=== PATIENT | male | born 1945 | race Caucasian/White ===

== ENCOUNTER 2023-12-04 12:47 | Outpatient (CLI) | payer MEDICARE, SELFPAY ==
--- NOTE | 2023-12-04 12:57 | USCV_ITS ---
Ratna Fernandez Age: 78 Gender: M : 1945 Exam Date: 12/04/2023 14:09 Ordering Phys: Konrad Barr MD Technologist: TOPHER [place] [facility] [place]: SIMON BP: / HR: 85 Rhythm: Atrial fibrillation Technical Quality: Adequate MEASUREMENTS (Male / Female) Normal Values 2D ECHO LV Diastolic Diameter PLAX 4.3 cm 4.2 - 5.9 / 3.9 - 5.3 cm IVS Diastolic Thickness 1.1 cm 0.6 - 1.0 / 0.6 - 0.9 cm IVS Systolic Thickness 1.4 cm LVPW Diastolic Thickness 1.4 cm 0.6 - 1.0 / 0.6 - 0.9 cm LVPW Systolic Thickness 1.7 cm LVOT Diameter 2.1 cm LV Ejection Fraction 2D Teich 32.1 % LV Ejection Fraction MOD 4C 48.4 % LV Ejection Fraction MOD 2C 40.3 % LV Ejection Fraction 2C AL 43.5 % LA Diameter 4.3 cm RA Systolic Volume 4C AL 39.7 ml RA Systolic Volume 4C MOD 37.0 ml LA Sys Volume AL 60.0 cm cubed LA Sys Volume Index AL 25.1 cm cubed/m squared Aorta at Sinotubular Diameter 2.8 cm IVC Diameter 1.8 cm M-MODE LA Ao Ratio MM 1.1 MV E Point Septal Separation 1.2 cm AV Cusp Separation MM 2.0 cm DOPPLER AV Peak Velocity 121.0 cm/s LVOT Peak Velocity 79.0 cm/s AV Area Cont Eq vti 4.0 cm squared AV Area Cont Eq pk 2.2 cm squared MV Area PHT 3.5 cm squared Mitral E to A Ratio 36.8 TV Peak Velocity 99.7 cm/s TR Peak Velocity 105.0 cm/s TR Peak Gradient 4.4 mmHg TR Mean Velocity 78.0 cm/s TR Mean Gradient 2.6 mmHg TR Velocity Time Integral 28.2 cm TV Peak E Velocity 23.0 cm/s PV Peak Velocity 97.0 cm/s FINDINGS Left Ventricle Normal left ventricular size and systolic function, EF 55%, visual. Because atrial fibrillation, segmental wall motion analysis is somewhat difficult. No gross abnormalities noted Right Ventricle The right ventricle is normal in size and function. Right Atrium The right atrium is normal in size. Left Atrium Mildly increased left atrial size. Mitral Valve Trace mitral valve regurgitation. Aortic Valve No gross abnormalities noted Tricuspid Valve Trace tricuspid valve regurgitation. Pulmonic Valve No gross abnormalities noted Pericardium Normal pericardium without effusion. Aorta Normal ascending aorta dimension. IVC Inferior vena cava not visualized. CONCLUSIONS Normal left ventricular size and systolic function, EF 55%, visual. Because atrial fibrillation, segmental wall motion analysis is somewhat difficult. No gross abnormalities noted. Mildly increased left atrial size. Trace mitral valve regurgitation. Trace tricuspid valve regurgitation. Estimated pulmonary artery peak systolic pressure , possibly within normal limits. There is no pericardial effusion. There are no intracardiac masses. No similar previous studies are available for comparison Dr Dani Wylie MD [facility] WITH [facility] (Electronically Signed) Final Date: 06 December 2023 15:27 S
== END 2023-12-04 12:48 | disposition home or self-care (01) ==
PROVIDERS: PCP Family Medicine; Visit Provider Family Medicine
DX: R06.09 Other forms of dyspnea (principal)
CPT/HCPCS: 93306

== ENCOUNTER → 2023-12-22 16:05 | Outpatient (BNVA) | payer MEDICARE, SELFPAY | PROVIDERS: Family Provider Family Medicine; PCP Family Medicine; Referring Provider Family Medicine; Visit Provider Internal Medicine Cardiovascular Disease | DX: N18.9 Chronic kidney disease, unspecified (principal); I48.91 Unspecified atrial fibrillation; R07.9 Chest pain, unspecified; R06.02 Shortness of breath; R94.31 Abnormal electrocardiogram [ECG] [EKG] | CPT/HCPCS: 36415; 80048; 83880; 84443; 93005; 99204 ==

== ENCOUNTER 2024-01-13 07:10 | Outpatient (CLI) | payer MEDICARE, SELFPAY ==
--- NOTE | 2024-01-13 07:18 | NMCV_ITS ---
NM shun perf SPECT r/s* [id number] Ratna Fernandez Age: 78 Gender: M : 1945 Exam Date: 01/13/2024 07:18 Ordering Phys: Dani Wylie MD ([email or web address]) Technologist: CAMDEN John Exam Location: [facility] Indications: cp STRESS TEST Please see separate stress test report in [facility] for full findings IMAGE PROTOCOL Rest/Stress 1 Lexiscan Day Radiopharmaceutical Dose (mCi) Administration Site Administered by Rest: Tc-99m 10.3 IV CAMDEN John Sestamibi Stress:Tc-99m 32.9 IV CAMDEN Horton Sestamibi Rest: 13-Jan-2024 60 Discovery 630 Stress: 13-Jan-2024 30 Discovery 630 0.4mg Lexiscan. Images obtained in supine and prone position. SPECT RESULTS Technical Quality: Good Raw Data Analysis: Normal Image Corrections: No attenuation or motion correction applied Summed Stress Score: 1 Summed Rest Score: 1 Summed Difference Score: 0 PERFUSION FINDINGS Fairly uniform myocardial tracer uptake with no significant perfusion abnormalities FUNCTIONAL RESULTS (calculated via Gated SPECT) Stress Image LV EF (%): 73 Stress EDV (mL):70 TID: 0.83 Stress ESV (mL):19 FUNCTIONAL FINDINGS: Segmental wall motion analysis revealing no gross wall motion abnormalities IMPRESSIONS 1. Myocardial perfusion imaging revealing uniform myocardial tracer uptake with no significant Perfusion abnormalities 2. Normal LV ejection fraction of 73%. 3. LV wall motion analysis revealing no gross wall motion abnormalities. 4. Normal LV volume Low probability for coronary ischemia, based on the above findings Dr Dani Wylie MD FACC (Electronically Signed) Final Date: 13 January 2024 10:27 S
--- NOTE | 2024-01-13 07:18 | ECG_ITS ---
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 Interpretive Statements Lung unchanged pre/post procedure; Intraprocedure shortess of breath; Symptoms resoled by discharge PROCEDURE: At the baseline, the EKG revealed atrial fibrillation with a controlled ventricular response rate. Poor R wave progression. Some nonspecific T wave changes. The baseline heart was 73 bpm with a blood pressue of 161/99 mm of Hg Lexiscan was infused over a period of 20 seconds. A total of 0.4 milligrams of Lexiscan was infused. The stress phase was continued for a total of 5 minutes. Heart rate at the end of the stress phase was 94 bpm with a blood pressure 141/85 mm of Hg. The EKG at the peak infusion revealed no significant changes. Sestamibi was injected 20 seconds after the Lexiscan infusion. Heart rate at the end of the recovery phase was 87 bpm with a blood pressure of 144/86 mm of Hg. CONCLUSION: 1. No significant EKG changes with the LexiScan infusion 2. No LexiScan induced chest pain or cardiac arrhythmia 3. Normal blood pressure and heart rate response 4. Sestamibi/sestamibi perfusion scan pending; see separate report. Electronically Signed On 01-14-2024 19:53:37 FINANCIAL SERVICES DIRECTOR by Dani Wylie M.D. [id number]
[2024-01-13 07:30] VITALS: BMI 36.1
[2024-01-13] MEDS: regadenoson 0.4 Mg/5 ml Syringe IVP (08:43)
[2024-01-13 08:56] VITALS: BP 144/86; PULSE 87
== END 2024-01-13 07:11 | disposition home or self-care (01) ==
LOC: CDL 07:14
PROVIDERS: Family Provider Family Medicine; PCP Family Medicine; Visit Provider Internal Medicine Cardiovascular Disease
DX: Z98.61 Coronary angioplasty status (principal); R06.02 Shortness of breath
CPT/HCPCS: 36415; 78452; 93017; 96374; A9500; J2785

== ENCOUNTER 2024-03-20 05:11 | Emergency (ER) | payer MEDICARE, SELFPAY ==
[2024-03-20 05:17] VITALS: BP 153/102; PULSE 105; RESP 21; TEMP 36.7; O2SAT 93; BMI 36.1
--- NOTE | 2024-03-20 05:23 | XRR_ITS ---
PROCEDURE INFORMATION: Exam: XR Chest Exam date and time: 03/20/2024 6:00 AM Age: 78 years old Clinical indication: Cough and dyspnea; Cough with dyspnea TECHNIQUE: Imaging protocol: Radiologic exam of the chest. Views: 1 view. COMPARISON: No relevant prior studies available. FINDINGS: Lungs: Unremarkable. No consolidation. Pleural spaces: Unremarkable. No pleural effusion. No pneumothorax. Heart/Mediastinum: Unremarkable. No cardiomegaly. Bones/joints: Unremarkable. XR/XR chest 1V portable [id number] IMPRESSION: No acute findings.
--- NOTE | 2024-03-20 05:23 | ECG_ITS ---
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
--- NOTE | 2024-03-20 05:23 | W.ED.SOB ---
Documented by User: J Luis Robledo DO 03/20/24 05:27 HPI - SOB/Dyspnea General: Chief Complaint: Shortness of Breath/Dyspnea Stated Complaint: Trouble breathing Time Seen by Provider: 03/20/24 05:22 History of Present Illness: HPI Narrative: Patient presents to the ER with complaints of shortness of breath off and on for the last several days. He says he got short of breath last night and it has not gone away. Patient denies any coughs colds fevers chills chest pain diaphoresis, he does say his legs swell up on him occasionally and he is on chlorthalidone and spironolactone. Patient does have A-fib and he takes Eliquis for this. Patient had a nuc med perfusion scan on 01/13/2024 showed ejection fraction of 70+ percent also a Lexiscan stress test which was negative performed the same day. Patient had an echo done on 12/04/2023 that showed A-fib and ejection fraction approximately 55% Related Data Home Medications ?Medication ?Instructions ?Recorded ?Confirmed amlodipine 10 mg tablet 10 mg PO DAILY 12/22/23 03/20/24 apixaban 5 mg tablet 5 mg PO BID 12/22/23 03/20/24 atorvastatin 20 mg tablet 20 mg PO DAILY 12/22/23 03/20/24 metoprolol tartrate 100 mg tablet 100 mg PO DAILY 12/22/23 03/20/24 naproxen 500 mg tablet (Naprosyn) 500 mg PO BID 12/22/23 03/20/24 spironolactone 25 mg tablet 25 mg PO DAILY 12/22/23 03/20/24 valsartan 320 mg tablet 320 mg PO DAILY 12/22/23 03/20/24 benzonatate 200 mg capsule 200 mg PO TID 03/20/24 03/20/24 fluticasone propionate 50 2 spray intranasal DAILY 03/20/24 03/20/24 mcg/actuation nasal spray,suspension Previous Rx's ?Medication ?Instructions ?Recorded chlorthalidone 25 mg tablet 25 mg PO DAILY 30 days #30 tabs 12/22/23 Allergies Allergy/AdvReac Type Severity Reaction Status Date / Time No Known Allergies Allergy Unverified 12/22/23 14:58 Review of Systems General: Reports: 10 or more systems reviewed and unremarkable except in HPI and below PFSH ED PFSH: Social History Smoking and tobacco/nicotine status: former use of tobacco/nicotine Physical Exam Const: COMMON NORMALS: no acute distress, average body habitus, patient oriented x3, no limitations, healthy appearing, alert and well nourished HENMT: COMMON NORMALS: normocephalic, atraumatic, hearing grossly normal bilaterally, external ears normal and Normal external nose present HEAD & SCALP: normocephalic and atraumatic NOSE: Normal external nose present EXTERNAL EAR: Yes external ears normal Neck/C-Spine: COMMON NORMALS: full ROM, no lymphadenopathy, supple, no meningeal signs, no JVD and Thyroid normal THYROID: Thyroid normal Chest: COMMONS NORMALS: normal inspection of the chest and normal palpation of entire chest wall Resp: COMMON NORMALS: normal respiratory effort, No retractions, No use of accessory muscles and clear to auscultation bilaterally AUSCULTATION: clear to auscultation bilaterally Cardio: COMMON NORMALS: no JVD, S1 normal heart sound present, S2 normal heart sound present, No gallops present (Cardio), No clicks present (Cardio) and No murmurs present (Cardio); negative for regular rate (Irregularly irregular rhythm) and negative for regular rhythm RATE: abnormal rate (Irregularly irregular rhythm) RHYTHM: abnormal rhythm HEART SOUNDS: S1 normal heart sound present and S2 normal heart sound present GI: COMMON NORMALS: Normal to inspection, nondistended, normoactive bowel sounds present, Soft to palpation, non-tender, No hepatosplenomegaly present and no masses PALPATION: Yes Soft to palpation and Yes No hepatosplenomegaly present Extremity: NARRATIVE EXTREMITY EXAM: 1+ pitting edema bilateral lower extremities Neuro: COMMON NORMALS: patient oriented x3 SENSORIUM/ORIENTATION: Yes alert MENINGEAL SIGNS: Yes no meningeal signs Course Vital Signs: Vital signs: Vital Signs Temperature 98.1 F 03/20/24 05:17 Pulse Rate 107 H 03/20/24 09:30 Respiratory Rate 20 H 03/20/24 08:00 Blood Pressure 152/87 03/20/24 09:30 Pulse Oximetry 94 03/20/24 09:30 Oxygen Delivery Me thod Room Air 03/20/24 05:17 MDM - SOB/Dyspnea Medical Records I reviewed the patient's medical records. Lab Data I reviewed the patient's lab results. 03/20/24 05:06 03/20/24 05:06 Labs/Radiology: Radiology Impressions Chest X-Ray 03/20/24 05:23 IMPRESSION: No acute findings. Laboratory Results WBC 16.14 10^3/uL (3.29-11.43) H 03/20/24 05:06 RBC 4.82 10^6/uL (3.85-5.65) 03/20/24 05:06 Hgb 14.60 g/dL (11.27-16.99) 03/20/24 05:06 Hct 43.3 % (37-53) 03/20/24 05:06 MCV 89.8 fl (82-101) 03/20/24 05:06 MCH 30.3 pg (27-33) 03/20/24 05:06 MCHC 33.7 g/dL (30-55) 03/20/24 05:06 RDW 13.7 % (12.1-15.1) 03/20/24 05:06 Plt Count 241 10^3/cmm (157-399) 03/20/24 05:06 MPV 10.1 fL (7.4-10.4) 03/20/24 05:06 Neut % (Auto) 79.3 % 03/20/24 05:06 Lymph % (Auto) 3.9 % 03/20/24 05:06 [place] % (Auto) 10.0 % 03/20/24 05:06 Eos % (Auto) 5.7 % 03/20/24 05:06 Baso % (Auto) 0.6 % 03/20/24 05:06 Neut # (Auto) 12.79 10^3/uL (1.8-7.7) H 03/20/24 05:06 Lymph # (Auto) 0.6 10^3/uL (0.8-4.8) L 03/20/24 05:06 [place] # (Auto) 1.6 10^3/uL (0.2-0.9) H 03/20/24 05:06 Eos # (Auto) 0.9 10^3/uL (0.0-0.8) H 03/20/24 05:06 Baso # (Auto) 0.1 10^3/uL (0.0-0.1) 03/20/24 05:06 Nucleated RBC % (auto) 0 % 03/20/24 05:06 Nucleated RBCs # 0.0 /100WBC 03/20/24 05:06 Sodium 130 mmol/L (136-145) L 03/20/24 05:06 Potassium 4.3 mmol/L (3.5-5.1) 03/20/24 05:06 Chloride 93 mmol/L (98-107) L 03/20/24 05:06 Carbon Dioxide 22 mmol/L (22-29) 03/20/24 05:06 Anion Gap 19.3 (5-19) H 03/20/24 05:06 BUN 14 mg/dL (8-23) 03/20/24 05:06 Creatinine 1.4 mg/dL (0.7-1.2) H 03/20/24 05:06 GFR Calculation Not Reportable 03/20/24 05:06 Glucose 128 mg/dL (65-115) H 03/20/24 05:06 Calculated Osmolality 272 mOsm/kg (285-295) L 03/20/24 05:06 Calcium 9.3 mg/dL (8.5-10.5) 03/20/24 05:06 Magnesium 1.7 mg/dL (1.7-2.3) 03/20/24 05:06 Total Bilirubin 0.8 mg/dL (0.15-1.2) 03/20/24 05:06 AST 18 U/L (0-40) 03/20/24 05:06 ALT 10 U/L (0-41) 03/20/24 05:06 Alkaline Phosphatase 112 U/L (40-130) 03/20/24 05:06 Troponin T Baseline 20 ng/L (0-15) H 03/20/24 05:06 Troponin T 120 Minute 19.93 ng/L (0-15) H 03/20/24 07:05 Delta Troponin T -0.07 ABS# (0-10) L 03/20/24 07:05 NT-Pro-B Natriuret Pep 1675 pg/mL (0-450) H 03/20/24 05:06 Total Protein 7.3 g/dL (6.6-8.7) 03/20/24 05:06 Albumin 4.0 g/dL (3.5-5.2) 03/20/24 05:06 Globulin 3.3 g/dL (1.3-4.6) 03/20/24 05:06 Coronavirus (PCR) Negative (Negative) 03/20/24 06:21 Influenza A (PCR) Positive (Negative) 03/20/24 06:21 Influenza Type B (PCR) Negative (Negative) 03/20/24 06:21 RSV (PCR) Negative (Negative) 03/20/24 06:21 All radiology interpretation(s) finalized by discharge Discharge Plan Discharge Patient Disposition: Home Clinical Impression: Influenza A Condition: Stable Prescriptions: No Action atorvastatin 20 mg tablet 20 mg PO DAILY metoprolol tartrate 100 mg tablet 100 mg PO DAILY naproxen [Naprosyn] 500 mg tablet 500 mg PO BID valsartan 320 mg tablet 320 mg PO DAILY amlodipine 10 mg tablet 10 mg PO DAILY apixaban 5 mg tablet 5 mg PO BID spironolactone 25 mg tablet 25 mg PO DAILY chlorthalidone 25 mg tablet 25 mg PO DAILY 30 Days Qty: 30 5RF benzonatate 200 mg capsule 200 mg PO TID fluticasone propionate 50 mcg/actuation spray,suspension 2 spray INTRANASAL DAILY Discharge Orders: Discharge ED (Routine); Ordered 03/20/24 Ordered By: Wil Vasquez Referrals: Konrad Barr MD [Primary Care Provider] - Patient Instructions: Influenza (ED), Opioid Safety, Pain Management Activity Restrictions/Additional Instructions: Thank you for choosing [facility] for your healthcare needs today. It is very important that you follow up as instructed or that you return to the Emergency Department should you have concerns or if your condition changes or worsens in any way. Print Language: Bulgarian Sign Out Sign Out Data: Patient Sign Out occurred on 03/20/24 at 06:20. Patient's care was discussed, and care was transferred from J Luis Robledo DO to Wil Vasquez DO. Coding Level of Care Code ED Sergeant Missile Crewman for Chg Fwd Documented by User: Wil Vasquez DO 03/20/24 14:11 HPI - SOB/Dyspnea General: Chief Complaint: Shortness of Breath/Dyspnea Stated Complaint: Trouble breathing Time Seen by Provider: 03/20/24 05:22 Related Data Home Medications ?Medication ?Instructions ?Recorded ?Confirmed amlodipine 10 mg tablet 10 mg PO DAILY 12/22/23 03/20/24 apixaban 5 mg tablet 5 mg PO BID 12/22/23 03/20/24 atorvastatin 20 mg tablet 20 mg PO DAILY 12/22/23 03/20/24 metoprolol tartrate 100 mg tablet 100 mg PO DAILY 12/22/23 03/20/24 naproxen 500 mg tablet (Naprosyn) 500 mg PO BID 12/22/23 03/20/24 spironolactone 25 mg tablet 25 mg PO DAILY 12/22/23 03/20/24 valsartan 320 mg tablet 320 mg PO DAILY 12/22/23 03/20/24 benzonatate 200 mg capsule 200 mg PO TID 03/20/24 03/20/24 fluticasone propionate 50 2 spray intranasal DAILY 03/20/24 03/20/24 mcg/actuation nasal spray,suspension Previous Rx's ?Medication ?Instructions ?Recorded chlorthalidone 25 mg tablet 25 mg PO DAILY 30 days #30 tabs 12/22/23 Allergies Allergy/AdvReac Type Severity Reaction Status Date / Time No Known Allergies Allergy Unverified 12/22/23 14:58 PFS ED PFSH: Social History Smoking and tobacco/nicotine status: former use of tobacco/nicotine Course Vital Signs: Vital signs: Vital Signs Temperature 98.1 F 03/20/24 05:17 Pulse Rate 107 H 03/20/24 09:30 Respiratory Rate 20 H 03/20/24 08:00 Blood Pressure 152/87 03/20/24 09:30 Pulse Oximetry 94 03/20/24 09:30 Oxygen Delivery Me thod Room Air 03/20/24 05:17 MDM - SOB/Dyspnea Medical Decision Making Care assumed at change of shift. Patient awake and alert he feels well he has no specific complaints at this point he had significant cough earlier. Denies any hemoptysis no chest pain at this time. Labs and imaging reviewed. Mild hyponatremia. Troponins trending normal. Patient states he is feeling little bit better will go ahead and discharge home. Have follow-up with primary next week. Return if has further problems. Lab Data 03/20/24 05:06 03/20/24 05:06 Labs/Radiology: Radiology Impressions Chest X-Ray 03/20/24 05:23 IMPRESSION: No acute findings. Laboratory Results WBC 16.14 10^3/uL (3.29-11.43) H 03/20/24 05:06 RBC 4.82 10^6/uL (3.85-5.65) 03/20/24 05:06 Hgb 14.60 g/dL (11.27-16.99) 03/20/24 05:06 Hct 43.3 % (37-53) 03/20/24 05:06 MCV 89.8 fl (82-101) 03/20/24 05:06 MCH 30.3 pg (27-33) 03/20/24 05:06 MCHC 33.7 g/dL (30-55) 03/20/24 05:06 RDW 13.7 % (12.1-15.1) 03/20/24 05:06 Plt Count 241 10^3/cmm (157-399) 03/20/24 05:06 MPV 10.1 fL (7.4-10.4) 03/20/24 05:06 Neut % (Auto) 79.3 % 03/20/24 05:06 Lymph % (Auto) 3.9 % 03/20/24 05:06 [place] % (Auto) 10.0 % 03/20/24 05:06 Eos % (Auto) 5.7 % 03/20/24 05:06 Baso % (Auto) 0.6 % 03/20/24 05:06 Neut # (Auto) 12.79 10^3/uL (1.8-7.7) H 03/20/24 05:06 Lymph # (Auto) 0.6 10^3/uL (0.8-4.8) L 03/20/24 05:06 [place] # (Auto) 1.6 10^3/uL (0.2-0.9) H 03/20/24 05:06 Eos # (Auto) 0.9 10^3/uL (0.0-0.8) H 03/20/24 05:06 Baso # (Auto) 0.1 10^3/uL (0.0-0.1) 03/20/24 05:06 Nucleated RBC % (auto) 0 % 03/20/24 05:06 Nucleated RBCs # 0.0 /100WBC 03/20/24 05:06 Sodium 130 mmol/L (136-145) L 03/20/24 05:06 Potassium 4.3 mmol/L (3.5-5.1) 03/20/24 05:06 Chloride 93 mmol/L (98-107) L 03/20/24 05:06 Carbon Dioxide 22 mmol/L (22-29) 03/20/24 05:06 Anion Gap 19.3 (5-19) H 03/20/24 05:06 BUN 14 mg/dL (8-23) 03/20/24 05:06 Creatinine 1.4 mg/dL (0.7-1.2) H 03/20/24 05:06 GFR Calculation Not Reportable 03/20/24 05:06 Glucose 128 mg/dL (65-115) H 03/20/24 05:06 Calculated Osmolality 272 mOsm/kg (285-295) L 03/20/24 05:06 Calcium 9.3 mg/dL (8.5-10.5) 03/20/24 05:06 Magnesium 1.7 mg/dL (1.7-2.3) 03/20/24 05:06 Total Bilirubin 0.8 mg/dL (0.15-1.2) 03/20/24 05:06 AST 18 U/L (0-40) 03/20/24 05:06 ALT 10 U/L (0-41) 03/20/24 05:06 Alkaline Phosphatase 112 U/L (40-130) 03/20/24 05:06 Troponin T Baseline 20 ng/L (0-15) H 03/20/24 05:06 Troponin T 120 Minute 19.93 ng/L (0-15) H 03/20/24 07:05 Delta Troponin T -0.07 ABS# (0-10) L 03/20/24 07:05 NT-Pro-B Natriuret Pep 1675 pg/mL (0-450) H 03/20/24 05:06 Total Protein 7.3 g/dL (6.6-8.7) 03/20/24 05:06 Albumin 4.0 g/dL (3.5-5.2) 03/20/24 05:06 Globulin 3.3 g/dL (1.3-4.6) 03/20/24 05:06 Coronavirus (PCR) Negative (Negative) 03/20/24 06:21 Influenza A (PCR) Positive (Negative) 03/20/24 06:21 Influenza Type B (PCR) Negative (Negative) 03/20/24 06:21 RSV (PCR) Negative (Negative) 03/20/24 06:21 Discharge Plan Discharge Patient Disposition: Home Clinical Impression: Influenza A Condition: Stable Prescriptions: No Action atorvastatin 20 mg tablet 20 mg PO DAILY metoprolol tartrate 100 mg tablet 100 mg PO DAILY naproxen [Naprosyn] 500 mg tablet 500 mg PO BID valsartan 320 mg tablet 320 mg PO DAILY amlodipine 10 mg tablet 10 mg PO DAILY apixaban 5 mg tablet 5 mg PO BID spironolactone 25 mg tablet 25 mg PO DAILY chlorthalidone 25 mg tablet 25 mg PO DAILY 30 Days Qty: 30 5RF benzonatate 200 mg capsule 200 mg PO TID fluticasone propionate 50 mcg/actuation spray,suspension 2 spray INTRANASAL DAILY Discharge Orders: Discharge ED (Routine); Ordered 03/20/24 Ordered By: Wil Vasquez Referrals: Konrad Barr MD [Primary Care Provider] - Patient Instructions: Influenza (ED), Opioid Safety, Pain Management Activity Restrictions/Additional Instructions: Thank you for choosing [facility] for your healthcare needs today. It is very important that you follow up as instructed or that you return to the Emergency Department should you have concerns or if your condition changes or worsens in any way. Print Language: Bulgarian Sign Out Sign Out Data: Patient Sign Out occurred on 03/20/24 at 06:20. Patient's care was discussed, and care was transferred from J Luis Robledo DO to Wil Vasquez DO. Coding Level of Care Code ED Sergeant Missile Crewman for Rachel Poole
[2024-03-20 05:32] LABS: Basophils # 0.1 10^3/uL (0.0-0.1); Basophils % 0.6 %; Eosinophils # 0.9 10^3/uL (0.0-0.8); Eosinophils % 5.7 %; Hematocrit 43.3 % (37-53); Lymphocytes # 0.6 10^3/uL (0.8-4.8); Lymphocytes % 3.9 %; Mean Corpuscular HGB Conc 33.7 g/dL (30-55); Mean Corpuscular Hemoglobin 30.3 pg (27-33); Mean Corpuscular Volume 89.8 fl (82-101); Mean Platelet Volume 10.1 fL (7.4-10.4); Monocytes # 1.6 10^3/uL (0.2-0.9); Neutrophils # 12.79 10^3/uL (1.8-7.7); Neutrophils % 79.3 %; Nucleated Red Blood Cells % 0 %; Platelet Count 241 10^3/cmm (157-399); Red Blood Count 4.82 10^6/uL (3.85-5.65); Red Cell Distribution Width 13.7 % (12.1-15.1); White Blood Count 16.14 10^3/uL (3.29-11.43)
[2024-03-20 05:58] LABS: Troponin(5th) Baseline 20 ng/L (0-15)
[2024-03-20 06:05] LABS: Alanine Aminotransferase 10 U/L (0-41); Alkaline Phosphatase 112 U/L (40-130); Anion Gap 19.3 (5-19); Aspartate Amino Transferase 18 U/L (0-40); Blood Urea Nitrogen 14 mg/dL (8-23); Calcium 9.3 mg/dL (8.5-10.5); Carbon Dioxide 22 mmol/L (22-29); Chloride 93 mmol/L (98-107); Creatinine Clr Calc Pharmacy 52.5713; Globulin 3.3 g/dL (1.3-4.6); Glucose 128 mg/dL (65-115); Magnesium 1.7 mg/dL (1.7-2.3); NT Pro B Type Natriuretic Pept 1675 pg/mL (0-450); Osmolality Calculated 272 mOsm/kg (285-295); Potassium 4.3 mmol/L (3.5-5.1); Sodium 130 mmol/L (136-145); Total Bilirubin 0.8 mg/dL (0.15-1.2); Total Protein 7.3 g/dL (6.6-8.7)
[2024-03-20 06:37] VITALS: BP 144/75; PULSE 101; RESP 19; O2SAT 93
[2024-03-20 07:06] LABS: Covid PCR NEGATIVE (Negative); Influenza A POSITIVE (Negative); Influenza B NEGATIVE (Negative); Respiratory Syncytial Virus Ce NEGATIVE (Negative)
[2024-03-20 07:54] LABS: Troponin 5 2HR 19.93 ng/L (0-15); Troponin 5 2HR Delta -0.07 ABS# (0-10)
[2024-03-20 08:00] VITALS: BP 141/87; PULSE 99; RESP 20; O2SAT 93
[2024-03-20 09:30] VITALS: BP 152/87; PULSE 107; O2SAT 94
== END 2024-03-20 09:30 | disposition home or self-care (01) ==
PROVIDERS: Emergency Medicine; Emergency Provider Family Medicine; PCP Family Medicine
DX: J10.1 Influenza due to other identified influenza virus with other respiratory manifestations (principal); Z11.52 Encounter for screening for COVID-19; Z87.891 Personal history of nicotine dependence
CPT/HCPCS: 71045; 80053; 83735; 83880; 84484; 85025; 87637; 93005; 99285

== ENCOUNTER 2024-03-20 19:24 | Emergency (ER) | payer MEDICARE, SELFPAY ==
[2024-03-20] VITALS (15 sets, daily range): BP systolic 114–134; BP diastolic 73–79; PULSE 84–127; RESP 15–24; TEMP 36.3; O2SAT 90–98; BMI 36.1
--- NOTE | 2024-03-20 20:49 | XRR_ITS ---
PROCEDURE INFORMATION: Exam: XR Chest Exam date and time: 03/20/2024 8:55 PM Age: 78 years old Clinical indication: Cough and shortness of breath; Cough; Chest congestion; Pleuritic chest pain TECHNIQUE: Imaging protocol: Radiologic exam of the chest. Views: 2 views. COMPARISON: CR (CHEST, ) 03/20/2024 6:00 AM FINDINGS: Lungs: Unremarkable. No consolidation. Pleural spaces: Unremarkable. No pleural effusion. No pneumothorax. Heart/Mediastinum: Unremarkable. No cardiomegaly. Bones/joints: Unremarkable. XR/XR chest 2V* [id number] IMPRESSION: No acute findings.
--- NOTE | 2024-03-20 20:50 | W.ED.COVID ---
HPI - COVID General: Chief Complaint: COVID symptoms Stated Complaint: Cant Breathe. Coughing steady Time Seen by Provider: 03/20/24 20:06 History of Present Illness: Mr. Fernandez is a 78-year-old man that presents to the emergency department with new diagnosis of influenza that was discharged home this morning around 5:00 only to return this evening with worsening shortness of breath and cough. Patient states that he tried to manage his symptoms at home but was unable to tolerate it. COVID Results: Coronavirus (PCR) Negative (Negative) 03/20/24 06:21 03/20/24 Related Data Home Medications ?Medication ?Instructions ?Recorded ?Confirmed amlodipine 10 mg tablet 10 mg PO DAILY 12/22/23 03/20/24 apixaban 5 mg tablet 5 mg PO BID 12/22/23 03/20/24 atorvastatin 20 mg tablet 20 mg PO DAILY 12/22/23 03/20/24 metoprolol tartrate 100 mg tablet 100 mg PO DAILY 12/22/23 03/20/24 naproxen 500 mg tablet (Naprosyn) 500 mg PO BID 12/22/23 03/20/24 spironolactone 25 mg tablet 25 mg PO DAILY 12/22/23 03/20/24 valsartan 320 mg tablet 320 mg PO DAILY 12/22/23 03/20/24 benzonatate 200 mg capsule 200 mg PO TID 03/20/24 03/20/24 fluticasone propionate 50 2 spray intranasal DAILY 03/20/24 03/20/24 mcg/actuation nasal spray,suspension Previous Rx's ?Medication ?Instructions ?Recorded chlorthalidone 25 mg tablet 25 mg PO DAILY 30 days #30 tabs 12/22/23 albuterol sulfate 2.5 mg/3 mL 2.5 mg (3 mL) inhalation Q4H PRN 03/21/24 (0.083 %) solution for nebulization shortness of breath or wheezing #90 mL Allergies Allergy/AdvReac Type Severity Reaction Status Date / Time No Known Allergies Allergy Unverified 12/22/23 14:58 Review of Systems General: Reports: 10 or more systems reviewed and unremarkable except in HPI and below (Reports cough, chest congestion, shortness of breath) FORMERLY [facility], [facility] ED PFSH: Social History Smoking and tobacco/nicotine status: former use of tobacco/nicotine Physical Exam Const: COMMON NORMALS: no acute distress, patient oriented x3 and alert GENERAL APPEARANCE: cooperative ORIENTATION/CONSCIOUSNESS: Yes awake, Yes oriented to person, Yes oriented to place and Yes oriented to time HENMT: COMMON NORMALS: normocephalic and atraumatic HEAD & SCALP: normocephalic and atraumatic FACE & SINUS: normal facial exam MOUTH: Normal oral and palatal mucosa present THROAT: posterior oropharynx normal Eye: COMMON NORMALS: Equal, round and reactive pupils present, EOMs intact bilaterally, conjunctivae normal and no scleral icterus GENERAL EYE: appearance normal, both eyes and all related structures ALIGNMENT: Yes alignment normal PERIORBITAL: periorbital findings normal CONJUNCTIVA: Yes conjunctivae normal PUPIL: Yes Equal, round and reactive pupils present Neck/C-Spine: COMMON NORMALS: full ROM GENERAL: Yes normal visual inspection Lymph: LYMPHATIC: no lymphadenopathy noted Chest: COMMONS NORMALS: normal inspection of the chest Breast/axilla inspection: Yes no chest deformity, asymmetry, normal contours, no nodules, masses, tenderness Resp: COMMON NORMALS: normal respiratory effort, No retractions and No use of accessory muscles EFFORT & INSPECTION: Yes able to speak in complete sentences and Yes symmetric chest movement AUSCULTATION: rales on the right in the lower lung argueta and rhonchi upper bilaterally Cardio: COMMON NORMALS: regular rate, regular rhythm and Peripheral pulses 2+ throughout RATE: regular rate RHYTHM: regular rhythm PERIPHERAL PULSES: Peripheral pulses 2+ throughout GI: COMMON NORMALS: Normal to inspection, nondistended, normoactive bowel sounds present, Soft to palpation, non-tender and No hepatosplenomegaly present INSPECTION: Yes normal to inspection AUSCULTATION: Yes normoactive bowel sounds PALPATION: Yes Soft to palpation and Yes No hepatosplenomegaly present RECTAL EXAM: Yes deferred Extremity: COMMON NORMALS: normal to inspection GENERAL: Yes normal exam except as noted Neuro: COMMON NORMALS: patient oriented x3 SENSORIUM/ORIENTATION: Yes alert, Yes oriented to person, Yes oriented to place and Yes oriented to time CRANIAL NERVES: Yes CN normal except as noted Psych: COMMON NORMALS: mental status grossly normal, Normal thought process present, cooperative, activity/motor behavior normal, denies homicidal ideation and denies suicidal ideation THOUGHT PROCESS: Normal thought process present Skin: COMMON NORMALS: no rashes or lesions noted, no wounds and turgor normal GENERAL SKIN EXAM: no rashes or lesions noted and turgor normal Course Vital Signs: Vital signs: Vital Signs Temperature 97.3 F L 03/20/24 19:34 Pulse Rate 98 03/20/24 23:55 Respiratory Rate 17 03/20/24 23:55 Blood Pressure 114/79 03/20/24 23:45 Pulse Oximetry 95 03/20/24 23:55 Oxygen Delivery Me thod Room Air 03/20/24 23:55 [facility] Medical Decision Making Patient was evaluated in the emergency department for complaints of influenza. Patient was seen earlier today and discharged with influenza A diagnosis. This evening patient returns due to increasing shortness of breath, worsening cough, and no longer tolerating it at home. Patient underwent a chest x-ray which reveals no new acute findings. He also underwent repeat laboratory evaluation that included CBC, CMP, lactic acid, troponin series, BNP. His leukocytosis is mildly worse than it was this morning. At 16.67. Initial troponin was 20, 2-hour delta of -0.7. He shows no signs of anemia that may have worsened his oxygen carrying capacity. His chemistry panel reveals a worsening sodium. This morning it was 130 today is 126. His anion gap has increased and his CO2 is now 20. His creatinine is elevated but this seems to be close to his baseline. His BNP is elevated over his baseline. Currently 2400. EKG on arrival revealed atrial fibrillation at a rate of 110. No ectopy, ST elevation or abnormal T wave inversion. At midnight we obtained a repeat EKG which again showed age-appropriate changes and a ventricular rate 99 beats minute. QTc was 390. I reviewed his case with Dr. Mcgill who recommended speaking with hospitalist. The hospitalist reviewed the case with me and believes that the patient can still be managed at home since he is doing better. We are going to set up home nebulizer. We are going to have the patient have a recheck of his sodium in 48 hours and were also going to have him hold his chlorthalidone since this can lead to worsening hyponatremia. I reviewed this with patient and he is agreeable with plan Lab Data 03/20/24 21:21 03/20/24 21:21 Radiology Impressions Chest X-Ray 03/20/24 20:49 IMPRESSION: No acute findings. Laboratory Results WBC 16.67 10^3/uL (3.29-11.43) H 03/20/24 21:21 RBC 4.53 10^6/uL (3.85-5.65) 03/20/24 21:21 Hgb 13.80 g/dL (11.27-16.99) 03/20/24 21:21 Hct 41.3 % (37-53) 03/20/24 21:21 MCV 91.2 fl (82-101) 03/20/24 21:21 MCH 30.5 pg (27-33) 03/20/24 21:21 MCHC 33.4 g/dL (30-55) 03/20/24 21:21 RDW 13.7 % (12.1-15.1) 03/20/24 21:21 Plt Count 221 10^3/cmm (157-399) 03/20/24 21:21 MPV 10.2 fL (7.4-10.4) 03/20/24 21:21 Neut % (Auto) 81.0 % 03/20/24 21:21 Lymph % (Auto) 2.9 % 03/20/24 21:21 [place] % (Auto) 10.5 % 03/20/24 21:21 Eos % (Auto) 4.6 % 03/20/24 21:21 Baso % (Auto) 0.5 % 03/20/24 21:21 Neut # (Auto) 13.51 10^3/uL (1.8-7.7) H 03/20/24 21:21 Lymph # (Auto) 0.5 10^3/uL (0.8-4.8) L 03/20/24 21:21 [place] # (Auto) 1.8 10^3/uL (0.2-0.9) H 03/20/24 21:21 Eos # (Auto) 0.8 10^3/uL (0.0-0.8) 03/20/24 21:21 Baso # (Auto) 0.1 10^3/uL (0.0-0.1) 03/20/24 21:21 Nucleated RBC % (auto) 0 % 03/20/24 21:21 Nucleated RBCs # 0.0 /100WBC 03/20/24 21:21 Sodium 126 mmol/L (136-145) L 03/20/24 21:21 Potassium 4.4 mmol/L (3.5-5.1) 03/20/24 21:21 Chloride 89 mmol/L (98-107) L 03/20/24 21:21 Carbon Dioxide 20 mmol/L (22-29) L 03/20/24 21:21 Anion Gap 21.4 (5-19) H 03/20/24 21:21 BUN 17 mg/dL (8-23) 03/20/24 21:21 Creatinine 1.4 mg/dL (0.7-1.2) H 03/20/24 21:21 GFR Calculation Not Reportable 03/20/24 21:21 Glucose 122 mg/dL (65-115) H 03/20/24 21:21 Calculated Osmolality 265 mOsm/kg (285-295) L 03/20/24 21:21 Lactic Acid 1.3 mmol/L (0.5-2.2) 03/20/24 21:21 Calcium 8.9 mg/dL (8.5-10.5) 03/20/24 21:21 Total Bilirubin 0.8 mg/dL (0.15-1.2) 03/20/24 21:21 AST 25 U/L (0-40) 03/20/24 21:21 ALT 11 U/L (0-41) 03/20/24 21:21 Alkaline Phosphatase 110 U/L (40-130) 03/20/24 21:21 Troponin T Baseline 20 ng/L (0-15) H 03/20/24 21:21 Troponin T 120 Minute 19.23 ng/L (0-15) H 03/20/24 00:10 Delta Troponin T -0.77 ABS# (0-10) L 03/20/24 00:10 NT-Pro-B Natriuret Pep 2373 pg/mL (0-450) H 03/20/24 21:21 Total Protein 6.4 g/dL (6.6-8.7) L 03/20/24 21:21 Albumin 3.9 g/dL (3.5-5.2) 03/20/24 21:21 Globulin 2.5 g/dL (1.3-4.6) 03/20/24 21:21 Coronavirus (PCR) Negative (Negative) 03/20/24 06:21 03/20/24 All radiology interpretation(s) finalized by discharge Discharge Plan Discharge Patient Disposition: Home Clinical Impression: Influenza A, Viral infection, Acute hyponatremia Condition: Stable Prescriptions: New albuterol sulfate 2.5 mg /3 mL (0.083 %) solution for nebulization 2.5 mg inhalation Q4H PRN (Reason: shortness of breath or wheezing) Qty: 90 0RF No Action atorvastatin 20 mg tablet 20 mg PO DAILY metoprolol tartrate 100 mg tablet 100 mg PO DAILY naproxen [Naprosyn] 500 mg tablet 500 mg PO BID valsartan 320 mg tablet 320 mg PO DAILY amlodipine 10 mg tablet 10 mg PO DAILY apixaban 5 mg tablet 5 mg PO BID spironolactone 25 mg tablet 25 mg PO DAILY chlorthalidone 25 mg tablet 25 mg PO DAILY 30 Days Qty: 30 5RF benzonatate 200 mg capsule 200 mg PO TID fluticasone propionate 50 mcg/actuation spray,suspension 2 spray INTRANASAL DAILY Discharge Orders: Discharge ED (Routine); Ordered 03/21/24 Ordered By: Madina Hill Other Ambulatory Orders: DME: Nebulizer with Neb Kit (Order) Location: None Selected Ordered By: Madina Hill Referrals: Konrad Barr MD [Primary Care Provider] - Discharge Diet: Advance as tolerated Discharge Activity: Resume usual activity Patient Instructions: Opioid Safety, Pain Management Activity Restrictions/Additional Instructions: To follow-up with the ER, an urgent care, or your primary care doctor in 48 hours to have a redraw of your sodium. Need to make sure that your sodium is rebounding. Last sodium was 126. Needs to start going up. Please hold chlorthalidone. This medication can make your sodium worse. Please make sure you are getting plenty of fluids. This is important for rehydration but also to help get rid of the secretions in your lungs. Please use the albuterol nebulizer kit as instructed. I want you to follow-up with your primary care doctor. You need to call Friday to set up an appointment. Return to the emergency department for new concerning or worsening symptoms Print Language: Slovak Coding Level of Care Code ED Baggage Porter Head for Rachel Poole
[2024-03-20 21:52] LABS: Basophils # 0.1 10^3/uL (0.0-0.1); Basophils % 0.5 %; Eosinophils # 0.8 10^3/uL (0.0-0.8); Eosinophils % 4.6 %; Hematocrit 41.3 % (37-53); Lymphocytes # 0.5 10^3/uL (0.8-4.8); Lymphocytes % 2.9 %; Mean Corpuscular HGB Conc 33.4 g/dL (30-55); Mean Corpuscular Hemoglobin 30.5 pg (27-33); Mean Corpuscular Volume 91.2 fl (82-101); Mean Platelet Volume 10.2 fL (7.4-10.4); Monocytes # 1.8 10^3/uL (0.2-0.9); Monocytes % 10.5 %; Neutrophils # 13.51 10^3/uL (1.8-7.7); Nucleated Red Blood Cells % 0 %; Platelet Count 221 10^3/cmm (157-399); Red Blood Count 4.53 10^6/uL (3.85-5.65); Red Cell Distribution Width 13.7 % (12.1-15.1); White Blood Count 16.67 10^3/uL (3.29-11.43)
--- NOTE | 2024-03-20 22:09 | PC.NURSE ---
RT called for patient breathing treatment.
[2024-03-20 22:10] LABS: Troponin(5th) Baseline 20 ng/L (0-15)
[2024-03-20] MEDS: ipratropium-albuterol 3 mL Neb INHALATION ×2 (22:20→23:55)
[2024-03-20 22:24] LABS: Alanine Aminotransferase 11 U/L (0-41); Albumin Level 3.9 g/dL (3.5-5.2); Alkaline Phosphatase 110 U/L (40-130); Anion Gap 21.4 (5-19); Aspartate Amino Transferase 25 U/L (0-40); Blood Urea Nitrogen 17 mg/dL (8-23); Calcium 8.9 mg/dL (8.5-10.5); Carbon Dioxide 20 mmol/L (22-29); Chloride 89 mmol/L (98-107); Creatinine Clr Calc Pharmacy 52.5713; Globulin 2.5 g/dL (1.3-4.6); Glucose 122 mg/dL (65-115); NT Pro B Type Natriuretic Pept 2373 pg/mL (0-450); Osmolality Calculated 265 mOsm/kg (285-295); Potassium 4.4 mmol/L (3.5-5.1); Sodium 126 mmol/L (136-145); Total Bilirubin 0.8 mg/dL (0.15-1.2); Total Protein 6.4 g/dL (6.6-8.7)
--- NOTE | 2024-03-20 22:25 | ECG_ITS ---
[facility] Date: 2024-03-20 Pat Name: Ratna Fernandez Department: Room: Gender: Male Care Giver: : 1945 Requested By: Madina Morris Order Number: [id number] Reading MD: RUDDY RAMIREZ Measurements Intervals [place] Rate: 92 P: 0 OH: 0 QRS: 81 QRSD: 97 T: 58 QT: 335 QTc: 416 Interpretive Statements ATRIAL FIBRILLATION LOW QRS VOLTAGE IN PRECORDIAL LEADS [QRS DEFLECTION < 1.0 mV IN CHEST LEADS] ABNORMAL RHYTHM ECG Compared to ECG 03/20/2024 05:26:56 No significant changes Electronically Signed On 03-21-2024 21:08:16 EDGE [employer]ACKER by RUDDY RAMIREZ [email or web address]
--- NOTE | 2024-03-20 22:34 | PC.RESP ---
2051 ekg not done in ER
[2024-03-20 23:17] LABS: Lactic Sepsis W/Reflex 1.3 mmol/L (0.5-2.2)
[2024-03-21] VITALS: BP 123/76; PULSE 91; RESP 15; O2SAT 91
[2024-03-21 00:15] VITALS: BP 121/74; PULSE 94; RESP 13; O2SAT 94
[2024-03-21 00:30] VITALS: BP 106/68; PULSE 114; O2SAT 97
[2024-03-21 00:45] VITALS: BP 143/89; PULSE 127; RESP 18; O2SAT 90
[2024-03-21 00:45] LABS: Troponin 5 2HR 19.23 ng/L (0-15)
[2024-03-21 00:50] LABS: Troponin 5 2HR Delta -0.77 ABS# (0-10)
[2024-03-21 01:00] VITALS: BP 128/72; PULSE 135; O2SAT 94
[2024-03-21 01:22] VITALS: BP 129/75; PULSE 113; RESP 16; O2SAT 96
[2024-03-21] MEDS: albuterol 2.5 mg/3 mL Neb 5 MG INHALATION (02:05)
== END 2024-03-21 01:38 | disposition home or self-care (01) ==
PROVIDERS: Emergency Provider Nurse Practitioner; PCP Family Medicine
DX: J10.1 Influenza due to other identified influenza virus with other respiratory manifestations (principal); B34.9 Viral infection, unspecified; E87.1 Hypo-osmolality and hyponatremia; Z87.891 Personal history of nicotine dependence
CPT/HCPCS: 36415; 71046; 80053; 83605; 83880; 84484; 85025; 93005; 94640; 99285; J7613

== ENCOUNTER 2024-10-25 12:29 | Outpatient (CLI) | payer MEDICARE, SELFPAY ==
--- NOTE | 2024-10-25 12:41 | MM_ITS ---
WS: [id number] BILATERAL 3D TOMOSYNTHESIS DIGITAL DIAGNOSTIC MAMMOGRAPHY WITH CAD CLINICAL INFORMATION: R BREAST PAIN/MASTODYNIA HISTORY: RIGHT breast pain COMPARISON: None. TECHNIQUE: Bilateral CC, MLO, and ML views. FINDINGS: Scattered fibroglandular densities bilaterally. Prominent RIGHT subareolar parenchymal tissue. Ultrasound is pending. ULTRASOUND BREAST RIGHT TECHNIQUE: Ultrasound right breast focused area of concern. CLINICAL INFORMATION: R BREAST PAIN/MASTODYNIA FINDINGS: Shadowing parenchymal tissue deep to the RIGHT nipple compatible with gynecomastia. No suspicious cystic or solid lesions to target for biopsy. No other suspicious findings. Findings have a benign appearance. MM/MM diag BI tomosynthesis [id number] IMPRESSION: DENSITY: There are scattered areas of fibroglandular density. BI-RADS: 2 - Benign. FOLLOW UP: See Report
== END 2024-10-25 12:30 | disposition home or self-care (01) ==
LOC: RAD 12:33
PROVIDERS: PCP Family Medicine; Visit Provider Family Medicine
DX: N64.4 Mastodynia (principal)
CPT/HCPCS: 76642; 77062; G0279